=== PATIENT | female | born 1940 | race Caucasian/White ===

== ENCOUNTER 2024-05-20 19:33 | Emergency (ER) | payer OTHER ==
[~2024-05-20] VITALS: Ht 160 cm; Wt 55.3 kg
[2024-05-20 19:56] VITALS: BP 145/117; PULSE 99; RESP 20; TEMP 98.7
[2024-05-20] MEDS: KETOROLAC 60 MG/2 ML VIAL IM ONE (21:02)
[2024-05-20] MEDS ORDERED: IBUP-2213 PO (21:05)
[2024-05-20] MEDS ORDERED: ACET-8905 PO (21:05)
[2024-05-20 21:25] VITALS: BP 159/63; PULSE 90; RESP 20; TEMP 98.7; O2SAT 98
== END 2024-05-20 21:25 | disposition home or self-care (01) ==
LOC: MED 19:33
DX: M79.605 Pain in left leg (principal); E11.9 Type 2 diabetes mellitus without complications; I10 Essential (primary) hypertension
CPT/HCPCS: 96372; 99283; J1885